=== PATIENT | male | born 1970 | race Caucasian/White ===

== ENCOUNTER → 2023-07-26 08:40 | Day surgery (SDC) | payer OTHER, SELFPAY | LOC: GI 08:40 | PROVIDERS: ATTENDING PHYSICIAN Surgery | DX: Z12.11 Encounter for screening for malignant neoplasm of colon (principal); D12.5 Benign neoplasm of sigmoid colon; K63.5 Polyp of colon | CPT/HCPCS: 45380; 88305 ==

== ENCOUNTER 2024-07-30 17:21 | Emergency (ER) | payer OTHER, SELFPAY ==
[2024-07-30 17:27] VITALS: BP 175/96
--- NOTE | 2024-07-30 18:54 | ED.GENMED ---
History of Present Illness
General
Chief Complaint: Facial Problem
Time Seen by Provider: 07/30/24 18:40
History of Present Illness
History of Present Illness:
53-year-old male presents to the emergency department for evaluation of left-sided maxillary facial pain that is been ongoing for the past 5 days. Pain has been worsening and is no longer improved with ibuprofen. Reports a fever this morning as
well. Saw his primary care physician 3 days ago and was diagnosed with the flu. He was diagnosed empirically with herpes zoster as a cause of his facial pain and was prescribed valacyclovir today however has not started this yet. He denies any
rashes. No rhinorrhea, sore throat, or coughing.
Past History
Past History
ED Past Medical History: None
ED Past Surgical History: Appendectomy (At age 21)
Social History
Tobacco: Non-smoker
Alcohol: None
Drug: None
Personal:
Living: with family
Employment: Employed
Family History
Family History: Diabetes and Early CAD (Father had [place] at age 45)
Review of Systems
Review of Systems
Allergies reviewed?: Yes
All Other Systems: ROS reviewed and negative except as documented in HPI and ROS
Phy Exam
Physical Exam
Physical Exam:
GEN: Well appearing, NAD, WDWN
HEENT: Oral mucosa moist, no scleral icterus. No reproducible tenderness to the maxillary face. Normal extraocular motions in all mijares. No facial lesions, normal tympanic membranes with no erythema or bulging
Cardiac: Regular rate
Lung: No respiratory distress, no tachypnea
MSK: No gross deformity or injuries
Skin: Good color, no pallor or jaundice, no rashes
Neuro: AO x3, moves all extremities freely
Psych: Calm, cooperative
Course
Orders/Labs/Results
Orders:
Orders
07/30/24 18:54
Ketorolac [Toradol] 30 mg IM NOW STA
Vital Signs
Initial and Last Documented VS:
Initial Vital Signs
Temp Pulse Resp BP Pulse Ox
99.6 F 96 20 175/96 98
07/30/24 17:27 07/30/24 17:27 07/30/24 17:27 07/30/24 17:27 07/30/24 17:27
Last Documented Vital Signs
Temp Pulse Resp BP Pulse Ox
99.6 F 96 20 175/96 98
07/30/24 17:27 07/30/24 17:27 07/30/24 17:27 07/30/24 17:27 07/30/24 17:27
MDM/Problems Addressed
MDM/Problems Addressed:
Symptoms could certainly be due to acute maxillary sinusitis, no facial lesions to suggest zoster. Will trial course of antibiotics and steroids given the presence of fever today
*Critical Care Note
Total Time (30-74mins, 75-104mins- exclusive of procedures): Not Applicable
ED Attending Note
-
Portions of this chart may have been created with voice recognition software.� Occasional wrong word or��sound alike� substitutions may have occurred due to the inherent limitations of voice recognition software.
Discharge Plan
Departure
Patient Disposition: Home (Routine Discharge)
Date of Disposition: 07/30/24
Time of Disposition: 18:54
Patient with high blood pressure during this ER visit?: No
Discharge Problem:
Acute sinusitis
Instructions: Sinusitis, Adult (DC)
Prescriptions:
New
amoxicillin-pot clavulanate 875-125 mg tablet
1 tab PO BID Qty: 10 0RF
methylprednisolone [Medrol (Braeden)] 4 mg tablets,dose pack
See Rx Instructions .ROUTE .COMPLEX Qty: 21 0RF
Rx Instructions:
orally per package directions
No Action
pantoprazole 40 MG tablet,delayed release (DR/EC)
40 mg PO DAILY Qty: 30 0RF
famotidine [Pepcid] 40 MG tablet
40 mg PO DAILY Qty: 30 0RF
Interventions
Interventions:
*Risk Screen - Suicide Last Done: 07/30/24 17:27
*General Assessment Last Done: 07/30/24 17:27
*Neglect/Abuse Screening Last Done: 07/30/24 17:27
*ED- Fall Risk Assessment Last Done: 07/30/24 19:40
*Nursing Disposition Last Done: 07/30/24 19:40
ED- Neurological Assessment Last Done: 07/30/24 18:50
ED-Skin Assessment Last Done: 07/30/24 18:50
Discharge Date and Time
Discharge Date/Time: 07/30/24 19:40
Print Language: TAJIK
[2024-07-30] MEDS: TORADOL 30 MG IM (19:02)
== END 2024-07-30 19:40 | disposition home or self-care (01) ==
LOC: EMR 17:21
PROVIDERS: EMERGENCY PHYSICIAN Emergency Medicine; FAMILY PHYSICIAN Nurse Practitioner
DX: J01.00 Acute maxillary sinusitis, unspecified (principal); Z90.49 Acquired absence of other specified parts of digestive tract
CPT/HCPCS: 96372; 99284

== ENCOUNTER → 2024-11-23 03:15 | Emergency (ER) | payer OTHER, SELFPAY ==
[2024-11-23 03:18] VITALS: BP 170/100
[2024-11-23 03:45] VITALS: BMI 35.5
[2024-11-23 04:00] VITALS: BP 135/83
[2024-11-23] MEDS: TORADOL 30 MG IM (05:06)
--- NOTE | 2024-11-23 05:54 | ED.GENMED ---
History of Present Illness
General
Chief Complaint: Back Pain
Source: patient
Time Seen by Provider: 11/23/24 04:42
History of Present Illness
History of Present Illness:
Note:
CHIEF COMPLAINT(S)
Back pain
HISTORY OF PRESENT ILLNESS
The patient is a 54-year-old male who presents with worsening back pain over the past two days. He denies any bowel or bladder dysfunction and reports having pain while walking. The pain seems to be localized on one side, not in the middle of the
back. The patient has not consulted an grants specialist but has previously visited his family doctor at [facility], where an X-ray was performed on Tuesday, though results are not yet available.
ADDITIONAL HISTORY OBTAINED FROM SOURCES OTHER THAN THE PATIENT
According to the patient, an X-ray was performed at his family doctor�s office on Tuesday, but the results have not been received.
MEDICATIONS
- Muscle relaxers: Two doses taken, details unspecified.
- Celecoxib: Taken once in the morning daily.
ALLERGIES
The patient denies any known allergies.
PLAN
1. An X-ray will be conducted at the current facility to further investigate the cause of the back pain.
2. Administer an injection of Ketorolac to manage pain and assess response.
3. Consider different treatment options based on the response to the injection, with the possibility of prescribing a more effective medication if the current regimen is inadequate.
4. Evaluate results from previous X-ray once available if necessary.
DIFFERENTIAL DIAGNOSIS
The Differential Diagnosis includes, in no particular order and is not limited to:
1. Lumbar strain or sprain
2. Lumbar disc herniation
3. Sciatica
4. Spinal stenosis
5. Degenerative disc disease
6. Facet joint syndrome
7. Sacroiliac joint dysfunction
8. Ankylosing spondylitis
9. Osteoarthritis of the spine
10. Kidney stones causing referred back pain
Disposition:
SUMMARY OF ENCOUNTER
The patient, a 54-year-old male, presented to the emergency department with subacute back pain. An X-ray conducted did not show any acute osteosarabomalities but instead revealed some rounding of the vertebral bodies, possibly consistent with
arthritis. The patient mentioned significant relief from the administration of Ketorolac. Dexmedetomidine (Decadron) was also administered to assist in managing the symptoms. The patient was advised to continue taking Celecoxib (Celebrex) as
prescribed.
PLAN
The patient will continue with his Celecoxib regimen and will receive a dose of dexamethasone (Decadron). He has been advised to keep his physical therapy appointment scheduled for Tuesday.
INDEPENDENT REVIEW OF LABS AND INTERPRETATION OF TESTS
My independent interpretation of the X-ray indicates rounding of the vertebral bodies, possibly consistent with arthritis.
MEDICATION RECONCILIATION
The patient has been administered a dose of dexamethasone (Decadron) in the emergency department. He is advised to continue taking Celecoxib as part of his medication regimen.
MEDICAL DECISION MAKING
- Complexity of Data Reviewed: Chronic conditions affecting care: None mentioned. Possible arthritis indicated by X-ray.
- Data:
- Category 1: Tests and documents: Reviewed X-ray results showing rounding of vertebral bodies.
- Category 2: Clinical information obtained from patient report regarding X-ray conducted at family doctor�s office.
- Risk: No immediate risk factors suggestive of cauda equina syndrome were suspected based on symptomatology, including absence of bowel/bladder incontinence.
DIAGNOSIS
Possible arthritis of the spine (M19.90 - Unspecified osteoarthritis, unspecified site).
Past History
Past History
ED Past Medical History: None
ED Past Surgical History: Appendectomy (At age 21)
Social History
Tobacco: Non-smoker
Alcohol: None
Drug: None
Personal:
Living: with family
Employment: Employed
Family History
Family History: Diabetes and Early CAD (Father had [place] at age 45)
Review of Systems
Review of Systems
Allergies reviewed?: Yes
All Other Systems: ROS reviewed and negative except as documented in HPI and ROS
Constitutional: Reports no symptoms
EENT: Reports no symptoms
Respiratory: Reports no symptoms
Cardiac: Reports no symptoms
ABD/GI: Denies abdominal pain, vomiting, constipated, bloody stools or black stools
: Denies frequency, incontinence or difficulty voiding
Musculoskeletal: Reports muscle pain and back pain
Skin: Reports no symptoms
Neurological: Reports no symptoms
Endocrine: Reports no symptoms
Hematologic/Lymphatic: Reports no symptoms
Psychiatric: Reports no symptoms
Phy Exam
General Physical Exam
General Presentation: well appearing
General age: appears stated age
General Skin: warm
General Habitus: normal
General Mental: alert
General Hydration: appears well hydrated
ENT Exam
ENT Exam: EOMI, pharynx normal, neck supple and normocephalic
Eye Exam
Eye Exam: PERRL, cornea clear and conjunctiva normal
Cardiovascular Exam
Cardiovascular Exam: regular rate/rhythm, no edema, no murmur and normal peripheral pulses
Pulmonary Exam
Pulmonary Exam: lungs clear and no respiratory distress
Gastrointestinal Exam
Gastrointestinal Exam: normal bowel sounds, non tender, soft, no organomegaly, no pulsatile mass and non distended
Neurological Exam
Neurological Exam: alert, oriented x3, no motor deficits and speech normal
Musculoskeletal Exam
Musculoskeletal Exam: full ROM, back tenderness (Midline in the thoracic spine) and neuro vasc intact
Skin Exam
Skin Exam: normal color and no rash
Psychiatric Exam
Psychiatric Exam: normal mood/affect
Course
Orders/Labs/Results
Orders:
Orders
11/23/24 04:34
Thoracic Spine 3 Views CR [CR Thoracic Spine 3 Views] Urgent
Comment:
Reason For Exam: pain
11/23/24 04:57
Ketorolac [Toradol] 30 mg IM NOW STA
11/23/24 05:54
Electrocardiogram (*1) Urgent
Reason for Study: Other
Other Reason for Exam: back pain
EKG- Treatment ONCE
11/23/24 05:55
Dexamethasone Pf [Decadron] 10 mg PO NOW STA
Vital Signs
Initial and Last Documented VS:
Initial Vital Signs
Temp Pulse Resp BP Pulse Ox
98.3 F 78 16 170/100 100
11/23/24 03:18 11/23/24 03:18 11/23/24 03:18 11/23/24 03:18 11/23/24 03:18
Last Documented Vital Signs
Temp Pulse Resp BP Pulse Ox
98.3 F 70 18 138/68 99
11/23/24 03:18 11/23/24 06:00 11/23/24 06:00 11/23/24 06:00 11/23/24 06:00
*Pulse Oximetry
SaO2: 99
Oxygen Mode of Delivery: Room air
Patient hypoxic: no
*Critical Care Note
Total Time (30-74mins, 75-104mins- exclusive of procedures): Not Applicable
ED Attending Note
-
Portions of this chart may have been created with voice recognition software.� Occasional wrong word or��sound alike� substitutions may have occurred due to the inherent limitations of voice recognition software.
Discharge Plan
Departure
Patient Disposition: Home (Routine Discharge)
Date of Disposition: 11/23/24
Time of Disposition: 05:56
Patient with high blood pressure during this ER visit?: Yes
Condition: Good
Discharge Problem:
Acute thoracic back pain
Instructions: Upper Back Pain (DC)
Prescriptions:
No Action
celecoxib 200 mg Capsule
200 mg PO DAILY
metaxalone 800 mg Tablet
800 mg PO BID
Patient Comments:
may take 2
cyclobenzaprine 5 mg Tablet
5 mg PO HS PRN (Reason: pain)
Rx Instructions:
may take 2
Referrals:
Nena Lombardo CRNP [Family Provider]
Activity Restrictions/Additional Instructions:
Please continue to take your Celebrex and muscle relaxant as previously prescribed. Keep your appointment and physical therapy scheduled for Tuesday.
Thank You for choosing [facility].
It was a pleasure meeting you and taking part in your care. We hope for your continued healing and wellness.
Please read discharge instructions in their entirety. However, they are for general education and may not describe your exact diagnosis at discharge. Information on your ER visit and medical conditions were discussed with you along with appropriate
follow up information...
If indicated, please take your medications as instructed and indicated on discharge paperwork.
Please schedule a follow up appointment as directed. Call to schedule an appointment
Please return to the emergency department with ANY change in, persisting, or worsening of symptoms. If any of your symptoms do not improve, or persist, or become more severe within 6-12 hours, please return to the emergency department for further
care.
Please return to the emergency department if you develop a headache, neck pain/stiffness, fever greater than 100.4F, chest pain, shortness of breath, persistent nausea, vomiting, slurred speech, difficulty walking, numbness/tingling, weakness, signs
of infection or any other symptoms that are worrisome to you.
If you have any questions or concerns please do not hesitate to call the Hospital at or E-mail me directly at [email or web address]
Interventions
Interventions:
*Risk Screen - Suicide Last Done: 11/23/24 03:18
*General Assessment Last Done: 11/23/24 03:18
*Neglect/Abuse Screening Last Done: 11/23/24 03:18
*ED- Fall Risk Assessment Last Done: 11/23/24 03:18
*ED COVID-19 Vaccine History Last Done: 11/23/24 03:18
*Nursing Disposition Last Done: 11/23/24 06:11
ED-Musculoskeletal Assessment Last Done: 11/23/24 03:46
Discharge Date and Time
Print Language: CITIZEN OF [place]
[2024-11-23] MEDS: DECADRON 10 MG PO (05:58)
[2024-11-23 06:00] VITALS: BP 138/68
== END | disposition home or self-care (01) ==
LOC: EMR 03:15
PROVIDERS: EMERGENCY PHYSICIAN Student in an Organized Health Care Education/Training Program; FAMILY PHYSICIAN Nurse Practitioner
DX: M54.6 Pain in thoracic spine (principal); Z79.1 Long term (current) use of non-steroidal anti-inflammatories (NSAID); Z79.52 Long term (current) use of systemic steroids; Z82.49 Family history of ischemic heart disease and other diseases of the circulatory system; Z83.3 Family history of diabetes mellitus; Z90.49 Acquired absence of other specified parts of digestive tract
CPT/HCPCS: 99283; 96372; 72072; 93005